=== PATIENT | male | born 1980 | race Caucasian/White ===

== ENCOUNTER 2024-11-05 17:31 | Inpatient (IN) | payer OTHER, SELFPAY ==
[2024-11-05 14:08] VITALS: BP 137/68
[2024-11-05 14:30] LABS: Hematocrit 37.6 % (39.0-52.0); Hemoglobin 13.4 g/dL (13.0-18.0); Mean Corp Hgb Conc. 35.6 g/dL (33.0-37.0); Mean Corpuscular Hgb 32.1 pg (27.0-31.0); Mean Platelet Volume 10.8 fL (7.4-10.4); Platelet Count 155 10^3/uL (130-400); Red Blood Cell Count 4.18 10^6/uL (4.70-6.10); Red Cell Dist. Width 11.5 % (11.5-14.5); White Blood Cell Count 6.3 10^3/uL (4.8-10.8)
[2024-11-05 14:46] LABS: ALT (SGPT) 32 U/L (0-50); AST (SGOT) 30 U/L (17-59); Albumin 3.3 g/dl (3.5-5.0); Alkaline Phosphatase 73 U/L (38-126); Blood Urea Nitrogen 10 mg/dl (9-20); COVID-19 Antigen Negative (Negative); Calcium 8.2 mg/dl (8.4-10.2); Carbon Dioxide 23 mmol/L (22-30); Chloride 94 mmol/L (98-107); Glucose 155 mg/dl (70-99); Sodium 124 mmol/L (135-145); Total Bilirubin 1.2 mg/dl (0.2-1.3); Total Protein 5.8 g/dl (6.3-8.2); eGFR > 60.00
[2024-11-05] MEDS: TYLENOL 1000 MG PO (14:52)
--- NOTE | 2024-11-05 14:52 | ED.GENMED ---
History of Present Illness
<KRYSTINA Salomon - Last Filed: 11/05/24 16:30>
General
Chief Complaint: Cold/Flu/URI Symptoms
Source: patient
Exam Limitations: none
Time Seen by Provider: 11/05/24 14:52
Nursing documentation reviewed up to this point in time: agreed with
History of Present Illness
History of Present Illness:
Patient is a 44-year-old male who presents to the ER for evaluation. Patient reports he had flulike symptoms last week and cough ,cold s/s, congestion, fevers however has not been able to get better. he continues to have fevers. He does feel weak
and has cough. He felt some shortness of breath.
He does not smoke.
Past History
<KRYSTINA Salomon - Last Filed: 11/05/24 16:30>
Past History
ED Past Medical History: None
Social History
Tobacco: Non-smoker
Review of Systems
<KRYSTINA Salomon - Last Filed: 11/05/24 16:30>
Review of Systems
Allergies reviewed?: Yes
All Other Systems: ROS reviewed and negative except as documented in HPI and ROS
Constitutional: Reports fever and fatigue
EENT: Reports no symptoms
Respiratory: Reports cough; Denies trouble breathing
Cardiac: Reports no symptoms
ABD/GI: Reports no symptoms
: Reports no symptoms
Musculoskeletal: Reports no symptoms
Skin: Reports no symptoms
Neurological: Reports no symptoms
Psychiatric: Reports no symptoms
Phy Exam
<KRYSTINA Salomon - Last Filed: 11/05/24 16:30>
General Physical Exam
General Presentation: no apparent distress
General age: appears stated age
General Skin: warm and dry
General Habitus: normal
General Mental: alert
General Hydration: appears well hydrated
Cardiovascular Exam
Cardiovascular Exam: no murmur, normal peripheral pulses and tachycardia
Pulmonary Exam
Pulmonary Exam: no respiratory distress and other (crackles right base )
Neurological Exam
Neurological Exam: alert and oriented x3
Musculoskeletal Exam
Musculoskeletal Exam: full ROM
Skin Exam
Skin Exam: normal color and warm/dry
Course
<KRYSTINA Salomon - Last Filed: 11/05/24 16:30>
Orders/Labs/Results
Orders:
Orders
11/05/24 14:19
Alcohol Urgent
CMP [Comprehensive Metabolic Panel] Urgent
COVID-19 Antigen Urgent
Source: Nasal Swab
Complete Blood Count/With Diff Urgent
Serum Osmolality Urgent
Comment: ADD ON
Influenza A+B Rapid Molecular Urgent
ALEXA Source: Nasal Swab
Specimen Description:
11/05/24 14:49
Acetaminophen [Tylenol] 1,000 mg .ROUTE .STK-MED ONE
11/05/24 14:52
Acetaminophen [Tylenol] 1,000 mg PO NOW STA
Chest [CR Chest - 2 Views ] Urgent
Comment:
Reason For Exam: fever /cough
11/05/24 15:01
EKG [Electrocardiogram (*1)] Urgent
Reason for Study: Tachycardia
EKG- Treatment ONCE
11/05/24 15:57
Azithromycin 500 mg/250 ml [Zithromax Infusion] 500 mg in 250 ml IV NOW
CefTRIAXone [Rocephin] 1,000 mg IV NOW STA
11/05/24 16:11
Lactic Acid Urgent
11/05/24 16:13
3% Sodium Chloride 50 ml [Sodium Chloride 3%] 50 ml IV ONCE
11/05/24 16:15
Add On- LAB Urgent
Tests Added?: serum osmolality
11/05/24 16:45
3% Sodium Chloride 50 ml [Sodium Chloride 3%] 50 ml IV ONCE
11/05/24 16:55
Admit/Transfer Patient As Directed
Co-Sign Provider:
Level of Care: Inpatient admission
Assign to:: Telemetry
Physician / Group: Jaime Rivera
Diagnosis: CAP/sepsis
Reason for Telemetry: Arrhythmia
Date to Stop Telemetry: 11/08/24
Time to Stop Telemetry: 11:00
Reason for Hospitalization: CAP/sepsis
Expected length of stay greater than two midnights?: Yes
ELOS- Estimated Length of Stay in days: 3
I certify the patient meets the requirements for IP care: Yes
PRN Pain Medication Management As Directed
May give lesser potent ordered pain med per pt: Yes
preference::
Protocol:: Medication orders for pain may be administered in a
manner that supports deferring to patient preference
when the pt is:
- Requesting an ordered lesser potent pain medication.
Least to most potent pain medications are defined
as: acetaminophen < NSAID < tramadol < opioids
(morphine, oxycodone, hydromorphone).
- Requesting a lesser dose of the same medication IF
ORDERED.
- Requesting a less intrusive route of administration
if both routes are prescribed by the provider (PO <
IV).
11/05/24 16:56
Add On- LAB Urgent
Tests Added?: urine osmolality, urine creatinine
Osmolality, Random Urine Urgent
Date Specimen was Collected: 11/05/24
Time Specimen was Collected: 16:50
Comment: ADD ON
UA Reflex to Culture [Urinalysis Reflex To Culture] Urgent
Date Specimen was Collected: 11/05/24
Time Specimen was Collected: 16:50
Urine Creatinine Urgent
Date Specimen was Collected: 11/05/24
Time Specimen was Collected: 16:50
Comment: ADD ON
Urine Microscopic Reflex Cult Urgent
Urine Sodium Urgent
Date Specimen was Collected: 11/05/24
Time Specimen was Collected: 16:50
Urine Culture Urgent
ALEXA Source: U
Specimen Description:
Date Specimen was Collected: 11/05/24
Time Specimen was Collected: 16:50
11/05/24 16:57
Code Status As Directed
Resuscitation Status: Full Code
11/05/24 17:20
Add On- LAB Routine
Tests Added?: serum alcohol level
11/05/24 17:41
Blood Culture Q30M
ALEXA Source: Blood/Venous
Specimen Description:
Comment: if not done in ED
0.9% Sodium Chloride [Nss (Preservative Free)] See Protocol IV PRN PRN
Acetaminophen [Tylenol] 650 mg PO Q4HPRN PRN
FOLic ACID [Folvite] 1 mg 0.9% Sodium Chloride 50 ml [Nss] 50 ml IV DAILYPRN
Famotidine [Pepcid] 20 mg PO DAILYPRN PRN
Lactase Enzyme [Lactaid] DOSE capsule PO QIDPRN PRN
Loratadine [Claritin] 10 mg PO DAILY PRN
Lorazepam [Ativan] 1 mg IV Q1HPRN PRN
Lorazepam [Ativan] 1 mg PO Q2HPRN PRN
Lorazepam [Ativan] 2 mg IV Q1HPRN PRN
Pseudoephedrine [Sudafed] 120 mg PO DAILYPRN PRN
11/05/24 17:41
Case Management Consult Once
Case Management Consult: Other
Comment: Substance abuse counseling
DIETARY CONSULT Routine
Reason for Consult: Nutrition support, possible refeeding guidelines
NEPHROLOGY CONSULT Routine
Consulting Provider: Cortez Rice
Was physician already notified: Yes
Reason for consult: hyponatremia
Legionella Urinary Antigen Routine
ALEXA Source: Urine
Specimen Description:
Respiratory Culture/Gram Stain Urgent
ALEXA Source: Sputum
Specimen Description:
Strep pneumoniae Antigen Routine
ALEXA Source: Urine
Specimen Description:
Activity As Directed
Activity Level: Out of Bed-Early Mobility
Intake/ Output As Directed
Frequency: Per unit guidelines
MSAS SCORE As Directed
MSAS Score 0-4: Repeat MSAS every 2 hours until 0-4 for three consecutive assessments, then every 4 hours x 48
hours.
MSAS Score 5-7: For MILD withdrawl symptoms. Repeat MSAS and RASS every 2 hours
MSAS Score 8-11: For MODERATE withdrawal symptoms. Repeat MSAS and RASS every 1 hour. Consider ICU or IMU
level of care.
MSAS Score > 11: For SEVERE withdrawal symptoms. Repeat MSAS and RASS every 1 hour. Notify provider, consider
ICU level of care.
MSAS Additional Instructions: If no improvement or no decrease in score from severe to moderate within 12
hours, consult psychiatry
MSAS Notify Provider: Notify provider if patient requires more than 10 mg of Lorazepam in eight hour period.
Vital Signs As Directed
Frequency: Per unit guidelines
Weight As Directed
Frequency: Once
Comment: on admission
DX Deep Vein Thrombosis Video Routine
11/05/24 18:00
Enoxaparin Sodium [Lovenox] 40 mg SC QPM
FOLic ACID [Folvite] 1 mg PO DAILY
11/05/24 18:11
Blood Culture Q30M
ALEXA Source: Blood/Venous
Specimen Description:
Comment: if not done in ED
11/05/24 20:00
Thiamine Injection 200 mg IV Q12
11/06/24 06:00
Basic Metabolic Panel IN AM
Complete Blood Count/No Diff IN AM
11/06/24 08:00
fluticasone propionate 1 spray NASAL DAILY
11/06/24 15:00
Azithromycin 500 mg/250 ml [Zithromax Infusion] 500 mg in 250 ml IV Q24H
CefTRIAXone [Rocephin] 1,000 mg IV Q24H
11/07/24 06:00
Basic Metabolic Panel IN AM
Complete Blood Count/No Diff IN AM
11/08/24 06:00
Basic Metabolic Panel IN AM
Complete Blood Count/No Diff IN AM
11/08/24 11:00
DC Protocol for Telemetry ONCE
11/08/24 20:00
Thiamine HCl [Vitamin B1] 100 mg PO BID
Abnormal Lab Results
11/05/24 11/05/24
14:19 16:56
RBC 4.18 L 10^6/uL
(4.70-6.10)
Hct 37.6 L %
(39.0-52.0)
MCH 32.1 H pg
(27.0-31.0)
MPV 10.8 H fL
(7.4-10.4)
Absolute Lymphs (auto) 0.8 L 10^3/uL
(1.2-3.4)
Neutrophils % 81.6 H %
(42.2-75.2)
Lymphocytes % 12.1 L %
(20.5-51.1)
Sodium 124 L mmol/L
(135-145)
Chloride 94 L mmol/L
(98-107)
Creatinine 0.6 L mg/dL
(0.7-1.3)
Glucose 155 H mg/dl
(70-99)
Serum Osmolality 260 L mOsm/kg
(275-300)
Calcium 8.2 L mg/dl
(8.4-10.2)
Total Protein 5.8 L g/dl
(6.3-8.2)
Albumin 3.3 L g/dl
(3.5-5.0)
Urine Ketones 2+ A
(Negative)
Ur Occult Blood Reflex 1+ A
(Negative)
Urine RBC 3-6 A /HPF
(0-2)
Urine WBC (Reflex) 16-20 A /HPF
(0-5)
Urine Bacteria (Reflex) Few A
(Negative)
Urine Osmolality 222 L mOsm/kg
(300-900)
Urine Sodium 6 L mmol/L
(30-90)
Urine Albumin (Reflex) 2+ A
(Neg - Trace)
11/05/24 14:19
11/05/24 14:19
Vital Signs
Initial and Last Documented VS:
Initial Vital Signs
Temp Pulse Resp BP Pulse Ox
102.8 F H 149 20 137/68 92
11/05/24 14:08 11/05/24 14:08 11/05/24 14:08 11/05/24 14:08 11/05/24 14:08
Last Documented Vital Signs
Temp Pulse Resp BP Pulse Ox
100.5 F H 110 16 117/72 95
11/05/24 18:01 11/05/24 17:49 11/05/24 17:49 11/05/24 17:49 11/05/24 17:49
Applications Project Manager consulted with Physician
Applications Project Manager consulted with physician?: Yes
Name of Physician Consulted: miguel
<Idania Davenport MD - Last Filed: 11/05/24 18:12>
Orders/Labs/Results
Orders:
Orders
11/05/24 14:19
Alcohol Urgent
CMP [Comprehensive Metabolic Panel] Urgent
COVID-19 Antigen Urgent
Source: Nasal Swab
Complete Blood Count/With Diff Urgent
Serum Osmolality Urgent
Comment: ADD ON
Influenza A+B Rapid Molecular Urgent
ALEXA Source: Nasal Swab
Specimen Description:
11/05/24 14:49
Acetaminophen [Tylenol] 1,000 mg .ROUTE .STK-MED ONE
11/05/24 14:52
Acetaminophen [Tylenol] 1,000 mg PO NOW STA
Chest [CR Chest - 2 Views ] Urgent
Comment:
Reason For Exam: fever /cough
11/05/24 15:01
EKG [Electrocardiogram (*1)] Urgent
Reason for Study: Tachycardia
EKG- Treatment ONCE
11/05/24 15:57
Azithromycin 500 mg/250 ml [Zithromax Infusion] 500 mg in 250 ml IV NOW
CefTRIAXone [Rocephin] 1,000 mg IV NOW STA
11/05/24 16:11
Lactic Acid Urgent
11/05/24 16:13
3% Sodium Chloride 50 ml [Sodium Chloride 3%] 50 ml IV ONCE
11/05/24 16:15
Add On- LAB Urgent
Tests Added?: serum osmolality
11/05/24 16:45
3% Sodium Chloride 50 ml [Sodium Chloride 3%] 50 ml IV ONCE
11/05/24 16:55
Admit/Transfer Patient As Directed
Co-Sign Provider:
Level of Care: Inpatient admission
Assign to:: Telemetry
Physician / Group: Jaime Rivera
Diagnosis: CAP/sepsis
Reason for Telemetry: Arrhythmia
Date to Stop Telemetry: 11/08/24
Time to Stop Telemetry: 11:00
Reason for Hospitalization: CAP/sepsis
Expected length of stay greater than two midnights?: Yes
ELOS- Estimated Length of Stay in days: 3
I certify the patient meets the requirements for IP care: Yes
PRN Pain Medication Management As Directed
May give lesser potent ordered pain med per pt: Yes
preference::
Protocol:: Medication orders for pain may be administered in a
manner that supports deferring to patient preference
when the pt is:
- Requesting an ordered lesser potent pain medication.
Least to most potent pain medications are defined
as: acetaminophen < NSAID < tramadol < opioids
(morphine, oxycodone, hydromorphone).
- Requesting a lesser dose of the same medication IF
ORDERED.
- Requesting a less intrusive route of administration
if both routes are prescribed by the provider (PO <
IV).
11/05/24 16:56
Add On- LAB Urgent
Tests Added?: urine osmolality, urine creatinine
Osmolality, Random Urine Urgent
Date Specimen was Collected: 11/05/24
Time Specimen was Collected: 16:50
Comment: ADD ON
UA Reflex to Culture [Urinalysis Reflex To Culture] Urgent
Date Specimen was Collected: 11/05/24
Time Specimen was Collected: 16:50
Urine Creatinine Urgent
Date Specimen was Collected: 11/05/24
Time Specimen was Collected: 16:50
Comment: ADD ON
Urine Microscopic Reflex Cult Urgent
Urine Sodium Urgent
Date Specimen was Collected: 11/05/24
Time Specimen was Collected: 16:50
Urine Culture Urgent
ALEXA Source: U
Specimen Description:
Date Specimen was Collected: 11/05/24
Time Specimen was Collected: 16:50
11/05/24 16:57
Code Status As Directed
Resuscitation Status: Full Code
11/05/24 17:20
Add On- LAB Routine
Tests Added?: serum alcohol level
11/05/24 17:41
Blood Culture Q30M
ALEXA Source: Blood/Venous
Specimen Description:
Comment: if not done in ED
0.9% Sodium Chloride [Nss (Preservative Free)] See Protocol IV PRN PRN
Acetaminophen [Tylenol] 650 mg PO Q4HPRN PRN
FOLic ACID [Folvite] 1 mg 0.9% Sodium Chloride 50 ml [Nss] 50 ml IV DAILYPRN
Famotidine [Pepcid] 20 mg PO DAILYPRN PRN
Lactase Enzyme [Lactaid] DOSE capsule PO QIDPRN PRN
Loratadine [Claritin] 10 mg PO DAILY PRN
Lorazepam [Ativan] 1 mg IV Q1HPRN PRN
Lorazepam [Ativan] 1 mg PO Q2HPRN PRN
Lorazepam [Ativan] 2 mg IV Q1HPRN PRN
Pseudoephedrine [Sudafed] 120 mg PO DAILYPRN PRN
11/05/24 17:41
Case Management Consult Once
Case Management Consult: Other
Comment: Substance abuse counseling
DIETARY CONSULT Routine
Reason for Consult: Nutrition support, possible refeeding guidelines
NEPHROLOGY CONSULT Routine
Consulting Provider: Cortez Rice
Was physician already notified: Yes
Reason for consult: hyponatremia
Legionella Urinary Antigen Routine
ALEXA Source: Urine
Specimen Description:
Respiratory Culture/Gram Stain Urgent
ALEXA Source: Sputum
Specimen Description:
Strep pneumoniae Antigen Routine
ALEXA Source: Urine
Specimen Description:
Activity As Directed
Activity Level: Out of Bed-Early Mobility
Intake/ Output As Directed
Frequency: Per unit guidelines
MSAS SCORE As Directed
MSAS Score 0-4: Repeat MSAS every 2 hours until 0-4 for three consecutive assessments, then every 4 hours x 48
hours.
MSAS Score 5-7: For MILD withdrawl symptoms. Repeat MSAS and RASS every 2 hours
MSAS Score 8-11: For MODERATE withdrawal symptoms. Repeat MSAS and RASS every 1 hour. Consider ICU or IMU
level of care.
MSAS Score > 11: For SEVERE withdrawal symptoms. Repeat MSAS and RASS every 1 hour. Notify provider, consider
ICU level of care.
MSAS Additional Instructions: If no improvement or no decrease in score from severe to moderate within 12
hours, consult psychiatry
MSAS Notify Provider: Notify provider if patient requires more than 10 mg of Lorazepam in eight hour period.
Vital Signs As Directed
Frequency: Per unit guidelines
Weight As Directed
Frequency: Once
Comment: on admission
DX Deep Vein Thrombosis Video Routine
11/05/24 18:00
Enoxaparin Sodium [Lovenox] 40 mg SC QPM
FOLic ACID [Folvite] 1 mg PO DAILY
11/05/24 18:11
Blood Culture Q30M
ALEXA Source: Blood/Venous
Specimen Description:
Comment: if not done in ED
11/05/24 20:00
Thiamine Injection 200 mg IV Q12
11/06/24 06:00
Basic Metabolic Panel IN AM
Complete Blood Count/No Diff IN AM
11/06/24 08:00
fluticasone propionate 1 spray NASAL DAILY
11/06/24 15:00
Azithromycin 500 mg/250 ml [Zithromax Infusion] 500 mg in 250 ml IV Q24H
CefTRIAXone [Rocephin] 1,000 mg IV Q24H
11/07/24 06:00
Basic Metabolic Panel IN AM
Complete Blood Count/No Diff IN AM
11/08/24 06:00
Basic Metabolic Panel IN AM
Complete Blood Count/No Diff IN AM
11/08/24 11:00
DC Protocol for Telemetry ONCE
11/08/24 20:00
Thiamine HCl [Vitamin B1] 100 mg PO BID
Abnormal Lab Results
11/05/24 11/05/24
14:19 16:56
RBC 4.18 L 10^6/uL
(4.70-6.10)
Hct 37.6 L %
(39.0-52.0)
MCH 32.1 H pg
(27.0-31.0)
MPV 10.8 H fL
(7.4-10.4)
Absolute Lymphs (auto) 0.8 L 10^3/uL
(1.2-3.4)
Neutrophils % 81.6 H %
(42.2-75.2)
Lymphocytes % 12.1 L %
(20.5-51.1)
Sodium 124 L mmol/L
(135-145)
Chloride 94 L mmol/L
(98-107)
Creatinine 0.6 L mg/dL
(0.7-1.3)
Glucose 155 H mg/dl
(70-99)
Serum Osmolality 260 L mOsm/kg
(275-300)
Calcium 8.2 L mg/dl
(8.4-10.2)
Total Protein 5.8 L g/dl
(6.3-8.2)
Albumin 3.3 L g/dl
(3.5-5.0)
Urine Ketones 2+ A
(Negative)
Ur Occult Blood Reflex 1+ A
(Negative)
Urine RBC 3-6 A /HPF
(0-2)
Urine WBC (Reflex) 16-20 A /HPF
(0-5)
Urine Bacteria (Reflex) Few A
(Negative)
Urine Osmolality 222 L mOsm/kg
(300-900)
Urine Sodium 6 L mmol/L
(30-90)
Urine Albumin (Reflex) 2+ A
(Neg - Trace)
11/05/24 14:19
11/05/24 14:19
Vital Signs
Initial and Last Documented VS:
Initial Vital Signs
Temp Pulse Resp BP Pulse Ox
102.8 F H 149 20 137/68 92
11/05/24 14:08 11/05/24 14:08 11/05/24 14:08 11/05/24 14:08 11/05/24 14:08
Last Documented Vital Signs
Temp Pulse Resp BP Pulse Ox
100.5 F H 110 16 117/72 95
11/05/24 18:01 11/05/24 17:49 11/05/24 17:49 11/05/24 17:49 11/05/24 17:49
<KRYSTINA Salomon - Last Filed: 11/05/24 16:30>
MDM/Problems Addressed
Differential Diagnosis Includes:
Not limited to influenza, COVID, pneumonia, viral syndrome
MDM/Problems Addressed:
As documented patient is a 44-year-old male from home presents for symptoms of cough shortness of breath weakness. Patient had flulike symptoms last week but persistent cough and fevers. X-ray shows significant pneumonia on the right side also
pneumonia on left. Sodium found to be low at 124. Patient presented febrile and tachycardic. Patient was given fluids. Case reviewed with ED physician Case reviewed with nephrology hypertonic saline ordered.
<KRYSTINA Salomon - Last Filed: 11/05/24 16:30>
*Radiology
Radiology exam reviewed: radiology read reviewed
*Pulse Oximetry
Patient hypoxic: yes
*EKG
Interpreted by ED Provider?: Yes
Heart Rate: 119
Rate: tachycardiac
Rhythm: sinus
Ischemia: non-specific ST changes
*Critical Care Note
Total Time (30-74mins, 75-104mins- exclusive of procedures): Not Applicable
<KRYSTINA Salomon - Last Filed: 11/05/24 16:30>
Patient Management
Discussion with other providers: Pulmonary Nurse Practitioner (Nephrology)
ED Attending Note
<KRYSTINA Salomon - Last Filed: 11/05/24 16:30>
-
Portions of this chart may have been created with voice recognition software.� Occasional wrong word or��sound alike� substitutions may have occurred due to the inherent limitations of voice recognition software.
<Idania Davenport MD - Last Filed: 11/05/24 18:12>
ED Attending Note
Patient seen and examined by attending physician: Yes
I performed the substantive portion of visit, reviewed & personally made and approve the management plan that is documented in note by myself or ARTURO.: Yes
ED Attending Note:
44-year-old male who has not really been feeling well for the last few days associated with fever and fatigue. Noted to have a significant pneumonia. Rales noted on right side on exam. Hemodynamically stable, not hypoxic, no respiratory distress,
nontoxic. Hyponatremia noted. Will admit, antibiotics, discussed with nephro regarding possibility of 3%, etc. etc.
Discharge Plan
Departure
Patient Disposition: Admit
Date of Disposition: 11/05/24
Time of Disposition: 16:29
Admit to: Telemetry
Admit to doctor: hospitalist
Presentation/result/management discussed w/ accepting MD/DO: Hospitalist
Patient with high blood pressure during this ER visit?: Yes
Condition: Fair
Covid-19: Negative COVID-19
Discharge Problem:
Pneumonia, Acute hyponatremia
Interventions
Interventions:
*Risk Screen - Suicide Last Done: 11/05/24 14:08
*General Assessment Last Done: 11/05/24 14:08
*Neglect/Abuse Screening Last Done: 11/05/24 14:08
ED- Fall Risk Assessment Last Done: 11/05/24 14:53
*ED COVID-19 Vaccine History Last Done: 11/05/24 14:08
*Nursing Disposition Last Done: 11/05/24 17:37
ED- Pulmonary Assessment Last Done: 11/05/24 14:53
Discharge Date and Time
Discharge Date/Time: 11/05/24 17:38
[2024-11-05 15:37] LABS: % Basophils 0.5 % (0-2); % Immature Granulocytes 0.5 % (0-0.5); % Lymphocytes 12.1 % (20.5-51.1); % Monocytes 5.3 % (1.7-9.3); % Neutrophils 81.6 % (42.2-75.2); Absolute Lymphocytes 0.8 10^3/uL (1.2-3.4); Absolute Monocytes 0.3 10^3/uL (0.1-0.6); Absolute Neutrophils 5.1 10^3/uL (1.4-6.5); Nucleated Red Blood Cells % 0 % (-)
[2024-11-05] MEDS: ROCEPHIN 1000 MG IV (16:14)
[2024-11-05] MEDS: ZITHROMAX INFUSION 250 IV (16:18)
[2024-11-05 16:20] VITALS: BP 108/67
[2024-11-05 16:35] LABS: Lactic Acid 1.1 mmol/L (0.7-2.0)
[2024-11-05 16:52] LABS: Osmolality Serum 260 mOsm/kg (275-300)
--- NOTE | 2024-11-05 16:59 | HPS.HSE ---
Family Physician
-
Family Physician: Bebeto Carballo
Chief Complaint
-
Fever/generalized weakness
History of Present Illness
Patient is a 44-year-old male with past medical history of seasonal allergies, chronic rhinorrhea, history of deviated nasal septum postprocedure, history of reflux disease, alcohol use disorder came to ER for having fever episode and generalized
weakness. Patient started coming down with flulike symptoms mainly of fever/body ache last week. Patient felt initially was getting better although symptoms getting worse and came to ER. Patient have some cough with minimal phlegm production.
Noted to be having high-grade fever in the ER with tachycardia. Chest x-ray showing right-sided pneumonia patient being admitted for treatment of pneumonia with likely sepsis from it.
Patient denies of having any other issues of abdominal pain/nausea/vomiting/diarrhea/dysuria. No cardiac complaints.
Medical History
Past Medical History
Past Medical History: Reports Other
Additional Past Medical History:
seasonal allergies, chronic rhinorrhea, history of deviated nasal septum postprocedure, history of reflux disease, alcohol use disorder
Past Surgical History: Reports Other
Social History
Tobacco: Non-smoker
Alcohol: Daily
Drug: None
Personal: Single
Living: With Family
Employment: Not Employed
Family History
Family History: Not pertinent
Allergies / Home Medications
Allergies reflects when Allergies were last updated in [employer].
Home Medications with original date entered in [employer]
Allergy/Medication List:
Allergies
Allergy/AdvReac Type Severity Reaction Status Date / Time
cat dander Allergy sneezing,itchy Verified 08/13/22 08:02
eyes
dog dander Allergy sneezing,itchy Verified 08/13/22 08:02
eyes
house dust Allergy sneezing,itchy Verified 08/13/22 08:02
eyes
No Known Drug Allergies Allergy NA Verified 08/13/22 08:02
pollen extracts Allergy sneezing Verified 08/13/22 08:02
,itchy
eyes,congestion
Home Medications
famotidine 20 mg tablet (Pepcid) 20 mg PO DAILYPRN PRN gerd 11/05/24
fluticasone propionate 50 mcg/actuation nasal spray,suspension 1 spray intranasal DAILY 11/05/24
lactase 3,000 unit tablet (Lactaid) 3,000 unit PO QIDPRN PRN milk products 11/05/24
loratadine 10 mg tablet (Claritin) 10 mg PO DAILY 11/05/24
huumvgcugyfax-RH-wrkztfgpefpcg-guaifen 5 mg-10 mg-325 mg-200 mg tablet (Tylenol Cold and Flu Severe) 2 tab PO DAILYPRN PRN cold/cough/allergies 11/05/24
pseudoephedrine HCl 60 mg tablet 120 mg PO DAILYPRN PRN allergies 11/05/24
Review of Systems
-
A 12 point ROS was completed and negative except as noted: Yes
Physical Exam
Vital Signs
Vital Signs
Temp Pulse Resp BP Pulse Ox
102.5 F H 110 14 108/67 94
11/05/24 15:41 11/05/24 16:20 11/05/24 16:20 11/05/24 16:20 11/05/24 16:20
Physical Exam
General: No Apparent Distress
HEENT: No Oxygen
Respiratory: Rhonchi
Cardiac: S1/S2 and Regular Rhythm; No Murmur or Rub
GI: Soft, Non Tender, Non Distended and Normal Bowel Sounds; No Organomegaly
Musculoskeletal: No Clubbing, No Cyanosis and No Edema
Skin: No Rash
Neuro: Awake, Alert, Oriented and Nonfocal/grossly intact
Laboratory Results
-
11/05/24 14:19
11/05/24 14:19
Laboratory Results
Lactic Acid 1.1 mmol/L (0.7-2.0) 11/05/24 16:11
Total Bilirubin 1.2 mg/dl (0.2-1.3) 11/05/24 14:19
AST 30 U/L (17-59) 11/05/24 14:19
ALT 32 U/L (0-50) 11/05/24 14:19
Alkaline Phosphatase 73 U/L (38-126) 11/05/24 14:19
Impression/Plan
-
1. Community-acquired pneumonia
Sepsis
-Patient is recovering from flulike symptoms,
-Chest x-ray showing significant infiltrate involving right side greater than left
-No significant leukocytosis, patient febrile/tachycardic
-Flu/covid negative. Check Legionella/strep pneumoniae urine antigen.
-Respiratory culture ordered if patient able to provide sample
-Patient got Rocephin/azithromycin ER, continue
2 acute hyponatremia.
-Sodium of 124
-Urine osmolarity of 222, urine sodium pending
-Suspected euvolemic hyponatremia from excessive water intake with added beer use
-Nephro involved in care, considering 3% NS transfusion based on urine electrolyte results
3. Alcohol use disorder
-Patient stated drinking daily 1-2 beers
-IV thiamine/folate and emesis protocol ordered
4. Gastroesophageal reflux disease
-Maintain on home dose of Pepcid
History of seasonal allergies
History of deviated nasal septum status post correction
History of chronic sinusitis
DVT prophylaxis -Lovenox
Full code
Admission time : 78mins
[2024-11-05 17:05] LABS: Osmolality Urine 222 mOsm/kg (300-900)
--- NOTE | 2024-11-05 17:07 | W.CON.NEPH ---
Consultation
-
Date/Time Consultation Requested: 11/05/2024 4 PM
Date/Time Consultation Performed: 11/05/2024 5 PM
Requesting Provider: Dr. Rivera
Performing Provider: Dr. Rice
Reason for Consultation: Hyponatremia
Medical History
-
Chief Complaint: Fever, malaise
History of Present Illness:
This is a 44-year-old gentleman who has very limited medical history other than that of reflux on as needed H2 lisa therapy as well as some sinus surgery in the past. He presented to the emergency room after 1 week of worsening upper respiratory
symptoms including cough congestion as well as fevers. He has gotten weaker over time as well as some shortness of breath. He says that his appetite has decreased slightly but only to about 75% of normal. He did continue to drink lots of water up
to 1 gallon per day this is however his usual amount. At the time of admission he was found to have multilobar pneumonia as well as a sodium level of 124.
Past Medical History
GERD, sinus surgery
Social History
Tobacco: Non-Smoker
Alcohol: Occasional
Family History
Mother with significant medical issues including diabetes and CKD she is bedbound.
Allergies / Home Medications
Allergy/AdvReac Type Severity Reaction Status Date / Time
cat dander Allergy sneezing,itchy Verified 08/13/22 08:02
eyes
dog dander Allergy sneezing,itchy Verified 08/13/22 08:02
eyes
house dust Allergy sneezing,itchy Verified 08/13/22 08:02
eyes
No Known Drug Allergies Allergy NA Verified 08/13/22 08:02
pollen extracts Allergy sneezing Verified 08/13/22 08:02
,itchy
eyes,congestion
�Medication �Instructions �Recorded �Confirmed �Type
famotidine 20 mg tablet (Pepcid) 20 mg PO DAILYPRN PRN gerd 11/05/24 11/05/24 History
fluticasone propionate 50 1 spray intranasal DAILY 11/05/24 11/05/24 History
mcg/actuation nasal
spray,suspension
lactase 3,000 unit tablet (Lactaid) 3,000 unit PO QIDPRN PRN milk 11/05/24 11/05/24 History
products
loratadine 10 mg tablet (Claritin) 10 mg PO DAILY 11/05/24 11/05/24 History
xhrmmqyiqejsl-RS-arcwpcnhjykvo-guaifen 2 tab PO DAILYPRN PRN 11/05/24 11/05/24 History
5 mg-10 mg-325 mg-200 mg tablet cold/cough/allergies
(Tylenol Cold and Flu Severe)
pseudoephedrine HCl 60 mg tablet 120 mg PO DAILYPRN PRN allergies 11/05/24 11/05/24 History
Review of Systems
-
Shortness of breath, malaise, decreased appetite. No chest pain
All other systems: Negative unless noted
Physical Exam
Vital Signs
Vital Signs
Temp Pulse Resp BP Pulse Ox
102.5 F H 110 14 108/67 94
11/05/24 15:41 11/05/24 16:20 11/05/24 16:20 11/05/24 16:20 11/05/24 16:20
Lab Results
WBC 6.3 10^3/uL (4.8-10.8) 11/05/24 14:19
RBC 4.18 10^6/uL (4.70-6.10) L 11/05/24 14:19
Hgb 13.4 g/dL (13.0-18.0) 11/05/24 14:19
Hct 37.6 % (39.0-52.0) L 11/05/24 14:19
Plt Count 155 10^3/uL (130-400) 11/05/24 14:19
Sodium 124 mmol/L (135-145) L 11/05/24 14:19
Potassium 4.0 mmol/L (3.5-5.1) 11/05/24 14:19
Chloride 94 mmol/L (98-107) L 11/05/24 14:19
Carbon Dioxide 23 mmol/L (22-30) 11/05/24 14:19
BUN 10 mg/dl (9-20) 11/05/24 14:19
Creatinine 0.6 mg/dL (0.7-1.3) L 11/05/24 14:19
eGFR > 60.00 11/05/24 14:19
Glucose 155 mg/dl (70-99) H 11/05/24 14:19
Calcium 8.2 mg/dl (8.4-10.2) L 11/05/24 14:19
Albumin 3.3 g/dl (3.5-5.0) L 11/05/24 14:19
Physical Exam
Patient is awake alert oriented and in no distress. Mood and affect were pleasant, insight and judgment were good. Pupils are equal round and reactive to light, extraocular movements are intact, sclera were anicteric. Hearing was normal, ears and
nose are intact. Oropharynx was clear. Neck was supple with trachea midline and no thyromegaly. Heart was regular rate and rhythm without rubs. Lower extremities without edema. Lungs were with rhonchi to auscultation bilaterally and with normal
excursion. Abdomen was soft, nontender, with normal active bowel sounds, and no hepatosplenomegaly. Skin was without rash and with normal turgor.
Data Reviewed
-
Radiology: Image Personally Visualized and interpreted (Chest x-ray 11/05/2024 by reading shows multilobar pneumonia right lower lobe greater than left lower lobe)
Medical Tests (Nuc Med, Echo etc): Image Personally Visualized and interpreted (EKG on 11/05/2024 by read shows sinus tachycardia right ventricular conduction delay)
Labs: Labs Reviewed by me
Old Records: Reviewed (On May 22, 2022 sodium 140)
Assessment/Plan
-
Assessment
Hyponatremia
Bilateral pneumonia
Reflux
Plan
Await urine studies at this time
He certainly may have excess ADH given the basis of pneumonia, he does have increased fluid intake as well as slightly decreased solute intake
Determination of hypertonic will be based on urine studies.
Follow BMP
Antibiotics per primary team
[2024-11-05 17:18] LABS: Urine Albumin 2+ (Neg - Trace); Urine Bilirubin Negative (Negative); Urine Character Clear (Clear); Urine Color Yellow; Urine Glucose Negative (Negative); Urine Ketone 2+ (Negative); Urine Leukocyte Negative (Negative); Urine Nitrite Negative (Negative); Urine Occult Blood 1+ (Negative); Urine Urobilinogen Negative (Neg - 1+)
[2024-11-05 17:21] LABS: Urine Sodium 6 mmol/L (30-90)
--- NOTE | 2024-11-05 17:42 | PTCARENOTE ---
1740 Pt received from ED via stretcher. Ambulated from stretcher to standing scale, and then to bed with steady gait.
[2024-11-05 17:44] VITALS: BMI 20.9
[2024-11-05 17:49] VITALS: BP 117/72
[2024-11-05 17:51] LABS: Alcohol None Detected
[2024-11-05 18:01] LABS: Urine Bacteria Few (Negative); Urine White Cell 16-20 /HPF (0-5)
[2024-11-05] MEDS: TYLENOL 650 MG PO ×2 (18:17→20:48)
[2024-11-05] MEDS: LOVENOX 40 MG SC (18:18)
[2024-11-05] MEDS: FOLVITE 1 MG PO (18:18)
[2024-11-05] MEDS: NSS 1000 IV (18:27)
[2024-11-05 19:00] VITALS: BP 99/58
[2024-11-05] MEDS: THIAMINE INJECTION 200 MG IV (20:47)
[2024-11-05 23:00] VITALS: BP 92/53
[2024-11-06 03:00] VITALS: BP 107/59
[2024-11-06 06:00] VITALS: BMI 20.1
[2024-11-06 06:40] LABS: Hematocrit 32.8 % (39.0-52.0); Hemoglobin 11.6 g/dL (13.0-18.0); Mean Corp Hgb Conc. 35.4 g/dL (33.0-37.0); Mean Corpuscular Hgb 32.9 pg (27.0-31.0); Mean Corpuscular Volume 92.9 fL (80.0-94.0); Mean Platelet Volume 11.3 fL (7.4-10.4); Platelet Count 177 10^3/uL (130-400); Red Blood Cell Count 3.53 10^6/uL (4.70-6.10); Red Cell Dist. Width 11.7 % (11.5-14.5); White Blood Cell Count 8.9 10^3/uL (4.8-10.8)
[2024-11-06 07:04] LABS: Blood Urea Nitrogen 8 mg/dl (9-20); Calcium 7.8 mg/dl (8.4-10.2); Carbon Dioxide 26 mmol/L (22-30); Chloride 101 mmol/L (98-107); Estimated Creatinine Clearance > 125 ml/min; Glucose 120 mg/dl (70-99); Potassium 3.8 mmol/L (3.5-5.1); Sodium 131 mmol/L (135-145); eGFR > 60.00
[2024-11-06 07:10] VITALS: BP 106/60
[2024-11-06] MEDS: THIAMINE INJECTION 200 MG IV ×2 (07:48→20:11)
[2024-11-06] MEDS: FOLVITE 1 MG PO (07:48)
[2024-11-06] MEDS: NSS 1000 IV ×2 (07:58→21:08)
[2024-11-06] MEDS: TYLENOL 650 MG PO ×2 (08:02→22:42)
--- NOTE | 2024-11-06 10:31 | W.PN.NEPH.PH ---
Today's Communication / Plan
-
Maintain fluid restriction of 48 ounces
Follow BMP
Assessment/Plan
-
Assessment
Hyponatremia
Bilateral pneumonia
Reflux
Plan
Urine sodium of 7 consistent with hypovolemic component of
Serum sodium now elevated to 131 following 3% administration
He certainly may have excess ADH given the basis of pneumonia, he did have increased fluid intake as well as slightly decreased solute intake
Fluid restriction adjusted to 48 ounces, no more hypertonic saline today
Follow BMP
Antibiotics per primary team
-
-
Date of Service: November 06, 2024
CC / HPI / ROS
-
Chief Complaint:
Hyponatremia
History of Present Illness:
Serum sodium improving to 131 following 3% administration
Hemodynamically labile
Remains on Zithromax and ceftriaxone for pneumonia
Review of Systems:
Remains febrile
weak
No shortness of
Labs
-
Labs:
WBC 8.9 10^3/uL (4.8-10.8) 11/06/24 06:15
RBC 3.53 10^6/uL (4.70-6.10) L 11/06/24 06:15
Hgb 11.6 g/dL (13.0-18.0) L 11/06/24 06:15
Hct 32.8 % (39.0-52.0) L 11/06/24 06:15
Plt Count 177 10^3/uL (130-400) 11/06/24 06:15
Sodium 131 mmol/L (135-145) L 11/06/24 06:15
Potassium 3.8 mmol/L (3.5-5.1) 11/06/24 06:15
Chloride 101 mmol/L (98-107) 11/06/24 06:15
Carbon Dioxide 26 mmol/L (22-30) 11/06/24 06:15
BUN 8 mg/dl (9-20) L 11/06/24 06:15
Creatinine 0.7 mg/dL (0.7-1.3) 11/06/24 06:15
eGFR > 60.00 11/06/24 06:15
Glucose 120 mg/dl (70-99) H 11/06/24 06:15
Calcium 7.8 mg/dl (8.4-10.2) L 11/06/24 06:15
Albumin 3.3 g/dl (3.5-5.0) L 11/05/24 14:19
Physical Exam
-
Vital Signs:
Vital Signs
Temp Pulse Resp BP Pulse Ox
100.5 F H 98 16 106/60 95
11/06/24 07:10 11/06/24 07:10 11/06/24 07:10 11/06/24 07:10 11/06/24 07:10
Cardiovascular:: Regular rate and rhythm
Respiratory:: Bilateral: Coarse
Lung Excursion:: Normal
Abdomen:: Nontender and Soft
Bowel Sounds:: Normal
Extremity Edema:: None: Bilateral:
Davenport Catheter: No
[2024-11-06 11:00] VITALS: BP 96/59
--- NOTE | 2024-11-06 12:10 | CM ---
Received consult for D&A counseling. Met with patient to obtain information for assessment. Patent stated that he lives with his mother in a two story home with two steps to enter and ramp access. Patient stated that he is independent with his ADLs,
personal care, dressing and bathing. He can cook, clean, do [employer] representative, and laundry. He drives and can get himself to his appointments and do all of his own shopping. He denied any DME. He has never had VN services or been to a SNF.
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 She also has private caregivers that come in throughout the week along with his siblings. Patient confirmed that she is safe while he is inpatient.
Patient has a prescription plan and uses, [facility] in [place] for all of his medications.
His PCP is, Bebeto Carballo.
Offered resources for ETOH cessation however he declined stating that he does drink daily but feels that he can decrease his intake independently without assistance.
Plan: Case management will continue to follow and assist with discharge planning. Home no needs.
--- NOTE | 2024-11-06 12:42 | W.PN.HOSP.TC ---
Today's Communication/Plan
-
Assessment / Plan
Assessment / Plan
NAD
Scleral Anicteric
MMM
No JVD
Rhonchorous worse on the right lower lobe
RRR, S1/S2
Soft, NT, ND, BS+
Warm, Dry
AAOx3
Calm
Pneumonia - CAP
Continue Rocephin and azithromycin
Continues to have fevers. Continue to monitor inpatient giving IV antibiotics
Hyponatremia hypovolemic
Improved after 3% saline
Fluid restrict 48 ounces
Nephrology concern for SIADH in the setting of pneumonia
Drinks 2 beers almost daily
Continue thiamine folate
States he is not drinking anymore after the
Anticipated Discharge: Within 24 hours
Subjective/Interval History
-
Date of Service: November 06, 2024
Seen and examined. No new complaints. No acute overnight events.
Woke up with drenching sweats
Feels weak but getting stronger
Objective Data
-
Labs:
Laboratory Results
11/06/24
06:15
WBC 8.9
Hgb 11.6 L
Hct 32.8 L
Plt Count 177
Sodium 131 L
Potassium 3.8
Chloride 101
Carbon Dioxide 26
BUN 8 L
Creatinine 0.7
Glucose 120 H
Calcium 7.8 L
Vital Signs:
Vital Signs
Temp Pulse Resp BP Pulse Ox
98.6 F 89 16 96/59 95
11/06/24 11:00 11/06/24 11:00 11/06/24 11:00 11/06/24 11:00 11/06/24 11:00
I&O
11/05/24 11/06/24 11/07/24
06:59 06:59 06:59
Intake Total 240 / 240
Output Total 400 / 400
Balance -160 / -160
[2024-11-06] MEDS: ROCEPHIN 1000 MG IV (13:18)
[2024-11-06] MEDS: STERILE WATER FOR INJECTION 10 ML IV (13:18)
[2024-11-06] MEDS: ZITHROMAX INFUSION 250 IV (13:29)
--- NOTE | 2024-11-06 14:33 | PN.CDI ---
CDI
- -
CDI:
Physician Documentation Request
Admit Date: 11/05/24 17:31
Dear Doctor Miguel,
Patient admitted with pneumonia.
H&P, 'Sepsis....No significant leukocytosis, patient febrile/tachycardic.'
On admission, T max 103 and HR 109-149.
Please update the status of sepsis documented in H&P:
Sepsis POA, is a valid diagnosis
Sepsis POA, is not a valid diagnosis
Other
Sepsis
- Systemic manifestations of infection, with 2 or more SIRS criteria which include:
- Fever >100.4 degrees F or hypothermia < 96.8 degrees F
- Leukocytosis - WBC > 12,000 or leukopenia - WBC < 4,000 or > 10% bands
- Tachycardia > 90 beats per minute
- Tachypnea - RR > 20 breaths per minute or PaCO2 , 32mmHg
Source: Merck Manual 2013
- Indicate the known or suspected organism
- Indicate the known or suspected underlying infection, such as UTI, pneumonia or cellulitis
- Indicate if a suspected bacterial infection of unknown source
- Indicate if associated with an implanted device such as a F/C, PICC line, orthopedic hardware, etc.
Use of terms such as suspected, likely, concern for, or probable (associated with a specific diagnosis that is being evaluated, monitored, or treated as if it exists) are acceptable and can be coded in the inpatient setting, when documented at the
time of discharge.
Thank you,
Loretta SMITH,RN,CCDS
CDI Specialist
Available via tiger text
Please use your independent medical judgment in providing your response.
[2024-11-06 15:06] VITALS: BP 102/66
[2024-11-06] MEDS: LOVENOX 40 MG SC (17:41)
[2024-11-06 19:00] VITALS: BP 115/73
[2024-11-06 23:00] VITALS: BP 107/58
[2024-11-07] MEDS: ROBITUSSIN DM 10 ML PO (00:24)
[2024-11-07 03:00] VITALS: BP 105/67
--- NOTE | 2024-11-07 03:54 | PTCARENOTE ---
Pt assessed as per work list flow sheet. Spiked T101.4, tylenol given. T down to 98.1. No s/s of withdrawal. No s/s of distress assessed. Will continue to monitor.
[2024-11-07 06:00] VITALS: BMI 20.1
[2024-11-07 07:10] VITALS: BP 119/77
[2024-11-07] MEDS: FOLVITE 1 MG PO (07:57)
[2024-11-07] MEDS: THIAMINE INJECTION 200 MG IV ×2 (07:57→21:25)
[2024-11-07] MEDS: NSS 1000 IV ×2 (08:01→21:28)
[2024-11-07 08:09] LABS: Hematocrit 31.4 % (39.0-52.0); Hemoglobin 10.8 g/dL (13.0-18.0); Mean Corp Hgb Conc. 34.4 g/dL (33.0-37.0); Mean Corpuscular Hgb 32.7 pg (27.0-31.0); Mean Corpuscular Volume 95.2 fL (80.0-94.0); Mean Platelet Volume 10.8 fL (7.4-10.4); Platelet Count 248 10^3/uL (130-400); Red Cell Dist. Width 12.1 % (11.5-14.5); White Blood Cell Count 9.1 10^3/uL (4.8-10.8)
[2024-11-07 08:28] LABS: Blood Urea Nitrogen 12 mg/dl (9-20); Carbon Dioxide 23 mmol/L (22-30); Chloride 104 mmol/L (98-107); Estimated Creatinine Clearance > 125 ml/min; Glucose 103 mg/dl (70-99); Potassium 3.5 mmol/L (3.5-5.1); Sodium 137 mmol/L (135-145); eGFR > 60.00
[2024-11-07 11:17] VITALS: BP 117/71
--- NOTE | 2024-11-07 12:55 | W.PN.NEPH.PH ---
Today's Communication / Plan
-
No more IV fluids required
Fluid restriction adjusted to 60 ounces the
Follow BMP
Assessment/Plan
-
Assessment
Hyponatremia
Bilateral pneumonia
Reflux
Plan
Urine sodium of 7 consistent with hypovolemic component of
Serum sodium now elevated to 131 following 3% administration
Sodium now corrected to 137
He certainly may have excess ADH given the basis of pneumonia, he did have increased fluid intake as well as slightly decreased solute intake
Fluid restriction adjusted to 60oz
Follow BMP
Antibiotics per primary team
-
-
Date of Service: November 07, 2024
CC / HPI / ROS
-
Chief Complaint:
Hyponatremia
History of Present Illness:
Serum sodium improving to 131 following 3% administration and now 137
Hemodynamically labile
Remains on Zithromax and ceftriaxone for pneumonia
Review of Systems:
Remains febrile
weak, continued cough
No shortness of breath
Labs
-
Labs:
WBC 9.1 10^3/uL (4.8-10.8) 11/07/24 07:31
RBC 3.30 10^6/uL (4.70-6.10) L 11/07/24 07:31
Hgb 10.8 g/dL (13.0-18.0) L 11/07/24 07:31
Hct 31.4 % (39.0-52.0) L 11/07/24 07:31
Plt Count 248 10^3/uL (130-400) D 11/07/24 07:31
Sodium 137 mmol/L (135-145) 11/07/24 07:31
Potassium 3.5 mmol/L (3.5-5.1) 11/07/24 07:31
Chloride 104 mmol/L (98-107) 11/07/24 07:31
Carbon Dioxide 23 mmol/L (22-30) 11/07/24 07:31
BUN 12 mg/dl (9-20) 11/07/24 07:31
Creatinine 0.6 mg/dL (0.7-1.3) L 11/07/24 07:31
eGFR > 60.00 11/07/24 07:31
Glucose 103 mg/dl (70-99) H 11/07/24 07:31
Calcium 8.0 mg/dl (8.4-10.2) L 11/07/24 07:31
Albumin 3.3 g/dl (3.5-5.0) L 11/05/24 14:19
Physical Exam
-
Vital Signs:
Vital Signs
Temp Pulse Resp BP Pulse Ox
99.0 F 84 16 117/71 99
11/07/24 11:17 11/07/24 11:17 11/07/24 11:17 11/07/24 11:17 11/07/24 11:17
Cardiovascular:: Regular rate and rhythm
Respiratory:: Bilateral: Coarse
Lung Excursion:: Normal
Abdomen:: Nontender and Soft
Bowel Sounds:: Normal
Extremity Edema:: None: Bilateral:
Davenport Catheter: No
[2024-11-07] MEDS: ROCEPHIN 1000 MG IV (14:17)
[2024-11-07] MEDS: STERILE WATER FOR INJECTION 10 ML IV (14:17)
[2024-11-07] MEDS: ZITHROMAX INFUSION 250 IV (14:21)
[2024-11-07 14:27] VITALS: BP 121/75
--- NOTE | 2024-11-07 15:10 | W.PN.HOSP.TC ---
Today's Communication/Plan
-
Discharge tomorrow once fever fever free for 24 hours
Assessment / Plan
Assessment / Plan
NAD
Scleral Anicteric
MMM
No JVD
Rhonchorous worse on the right lower lobe
RRR, S1/S2
Soft, NT, ND, BS+
Warm, Dry
AAOx3
Calm
Pneumonia - CAP
Continue Rocephin and azithromycin
Continues to have fevers. Continue to monitor inpatient giving IV antibiotics
Hyponatremia hypovolemic, resolved
Improved after 3% saline
Fluid restrict 48 ounces
Nephrology concern for SIADH in the setting of pneumonia
Drinks 2 beers almost daily
Continue thiamine folate
States he is not drinking anymore after the
Anticipated Discharge: Within 24 hours
Subjective/Interval History
-
Date of Service: November 07, 2024
Seen and examined. No new complaints. No acute overnight events.
Fever was at 2300. Drenching sweats otherwise resolved.
Objective Data
-
Labs:
Laboratory Results
11/07/24
07:31
WBC 9.1
Hgb 10.8 L
Hct 31.4 L
Plt Count 248 D
Sodium 137
Potassium 3.5
Chloride 104
Carbon Dioxide 23
BUN 12
Creatinine 0.6 L
Glucose 103 H
Calcium 8.0 L
Vital Signs:
Vital Signs
Temp Pulse Resp BP Pulse Ox
99.7 F 84 16 121/75 98
11/07/24 14:27 11/07/24 14:27 11/07/24 14:27 11/07/24 14:27 11/07/24 14:27
I&O
11/06/24 11/07/24 11/08/24
06:59 06:59 06:59
Intake Total 1440 / 1440
Output Total 400 / 400
Balance 1040 / 1040
[2024-11-07] MEDS: LOVENOX 40 MG SC (18:07)
[2024-11-07 19:00] VITALS: BP 123/80
[2024-11-07 23:00] VITALS: BP 119/76
[2024-11-08 03:00] VITALS: BP 136/90
[2024-11-08] MEDS: ROBITUSSIN DM 10 ML PO (03:00)
--- NOTE | 2024-11-08 04:09 | PTCARENOTE ---
Pt assessed as per work list flow sheet. No fevers this shift thus far. No s/s of distress assessed. Will continue to monitor.
[2024-11-08 06:00] VITALS: BMI 20.8
[2024-11-08 07:11] LABS: Hematocrit 30.4 % (39.0-52.0); Hemoglobin 10.6 g/dL (13.0-18.0); Mean Corp Hgb Conc. 34.9 g/dL (33.0-37.0); Mean Corpuscular Hgb 32.4 pg (27.0-31.0); Mean Platelet Volume 10.2 fL (7.4-10.4); Platelet Count 283 10^3/uL (130-400); Red Blood Cell Count 3.27 10^6/uL (4.70-6.10); Red Cell Dist. Width 11.9 % (11.5-14.5); White Blood Cell Count 7.7 10^3/uL (4.8-10.8)
[2024-11-08 07:15] VITALS: BP 132/85
[2024-11-08 07:32] LABS: Blood Urea Nitrogen 10 mg/dl (9-20); Calcium 8.1 mg/dl (8.4-10.2); Carbon Dioxide 24 mmol/L (22-30); Chloride 108 mmol/L (98-107); Estimated Creatinine Clearance > 125 ml/min; Glucose 96 mg/dl (70-99); Potassium 3.6 mmol/L (3.5-5.1); Sodium 137 mmol/L (135-145); eGFR > 60.00
[2024-11-08] MEDS: FOLVITE 1 MG PO (08:24)
[2024-11-08] MEDS: THIAMINE INJECTION 200 MG IV (08:24)
--- NOTE | 2024-11-08 10:53 | W.PN.NEPH.PH ---
Today's Communication / Plan
-
follow BMP
Assessment/Plan
-
Assessment
Hyponatremia
Bilateral pneumonia
Reflux
Plan
no FR on dc
follow BMP
abx per primary team
-
-
Date of Service: November 08, 2024
CC / HPI / ROS
-
Chief Complaint:
Hyponatremia
History of Present Illness:
Serum sodium improving to 137 stable
BP stable
Remains on Zithromax and ceftriaxone for pneumonia
Review of Systems:
no fever
No shortness of breath
Labs
-
Labs:
WBC 7.7 10^3/uL (4.8-10.8) 11/08/24 06:37
RBC 3.27 10^6/uL (4.70-6.10) L 11/08/24 06:37
Hgb 10.6 g/dL (13.0-18.0) L 11/08/24 06:37
Hct 30.4 % (39.0-52.0) L 11/08/24 06:37
Plt Count 283 10^3/uL (130-400) 11/08/24 06:37
Sodium 137 mmol/L (135-145) 11/08/24 06:37
Potassium 3.6 mmol/L (3.5-5.1) 11/08/24 06:37
Chloride 108 mmol/L (98-107) H 11/08/24 06:37
Carbon Dioxide 24 mmol/L (22-30) 11/08/24 06:37
BUN 10 mg/dl (9-20) 11/08/24 06:37
Creatinine 0.6 mg/dL (0.7-1.3) L 11/08/24 06:37
eGFR > 60.00 11/08/24 06:37
Glucose 96 mg/dl (70-99) 02/26/25 06:37
Calcium 8.1 mg/dl (8.4-10.2) L 11/08/24 06:37
Albumin 3.3 g/dl (3.5-5.0) L 11/05/24 14:19
Physical Exam
-
Vital Signs:
Vital Signs
Temp Pulse Resp BP Pulse Ox
97.8 F 93 18 132/85 98
11/08/24 07:15 11/08/24 07:15 11/08/24 07:15 11/08/24 07:15 11/08/24 07:15
Cardiovascular:: Regular rate and rhythm
Respiratory:: Bilateral: Coarse
Lung Excursion:: Normal
Abdomen:: Nontender and Soft
Bowel Sounds:: Normal
Extremity Edema:: None: Bilateral:
[2024-11-08 10:57] VITALS: BP 124/82
--- NOTE | 2024-11-08 12:16 | W.PN.HOSP.TC ---
Addendum entered and electronically signed by Mikhail Rivera MD 11/09/24 17:34:
sepsis ruled in
Original Note:
Today's Communication/Plan
-
More than 30 minutes spent in discharge including
Final examination of the patient
Summarizing hospital stay
Instructions for continuing care to all relevant caregivers
Preparation of discharge records, prescriptions, and referral forms
Total time spent (in minutes): 33mins
Assessment / Plan
Assessment / Plan
NAD
Scleral Anicteric
MMM
No JVD
Rhonchorous worse on the right lower lobe
RRR, S1/S2
Soft, NT, ND, BS+
Warm, Dry
AAOx3
Calm
Pneumonia - CAP
transition ctx to cefdinir. complete full 5days. afebrile >24hours
Hyponatremia hypovolemic, resolved
s/p 3% saline
dc fluid restriction
Drinks 2 beers almost daily
Continue thiamine folate
States he is not drinking anymore after the
Updatged PCP about hospitalization via [facility]
Anticipated Discharge: Today
Subjective/Interval History
-
Date of Service: November 08, 2024
seen and examiend
no new compaonts
no acute overnight events
Objective Data
-
Labs:
Laboratory Results
11/08/24
06:37
WBC 7.7
Hgb 10.6 L
Hct 30.4 L
Plt Count 283
Sodium 137
Potassium 3.6
Chloride 108 H
Carbon Dioxide 24
BUN 10
Creatinine 0.6 L
Glucose 96
Calcium 8.1 L
Vital Signs:
Vital Signs
Temp Pulse Resp BP Pulse Ox
97.5 F 94 16 124/82 98
02/26/25 10:57 11/08/24 10:57 11/08/24 10:57 11/08/24 10:57 11/08/24 10:57
I&O
11/07/24 11/08/24 11/09/24
06:59 06:59 06:59
Intake Total 1440 / 1440 1200 / 1200
Output Total 400 / 400
Balance 1040 / 1040 1200 / 1200
--- NOTE | 2024-11-08 14:19 | PTCARENOTE ---
patient denies complaints, tolerating diet, remains independent, vss, for discharge to home
== END 2024-11-08 14:19 | disposition home or self-care (01) | DRG 871 ==
LOC: 3 WEST ACU 17:31
PROVIDERS: Emergency Medicine; Nurse Practitioner; ADMITTING PHYSICIAN Hospitalist; ATTENDING PHYSICIAN Hospitalist; CONSULT PHYSICIAN Specialist; EMERGENCY PHYSICIAN Emergency Medicine; FAMILY PHYSICIAN Family Medicine
DX: A41.89 Other specified sepsis (principal); J18.9 Pneumonia, unspecified organism; E87.1 Hypo-osmolality and hyponatremia; K21.9 Gastro-esophageal reflux disease without esophagitis; F10.10 Alcohol abuse, uncomplicated; J34.2 Deviated nasal septum; Z11.52 Encounter for screening for COVID-19
CPT/HCPCS: 71046; 80048; 80053; 81003; 81015; 82077; 82570; 83605; 83930; 83935; 84300; 85025; 85027; 87040; 87086; 87205; 87449; 87502; 87811; 87899; 93005; 96365; 96375; 99285

== ENCOUNTER → 2024-11-22 12:22 | Outpatient (REF) | payer OTHER, SELFPAY | LOC: RAD 12:22 | PROVIDERS: ATTENDING PHYSICIAN Nurse Practitioner Family | DX: J18.9 Pneumonia, unspecified organism (principal) | CPT/HCPCS: 71046 ==